=== PATIENT | female | born 1970 | race Caucasian/White ===

== ENCOUNTER 2021-09-17 21:24 | Emergency (ER) | payer OTHER ==
[~2021-09-17] VITALS: Ht 167.6 cm; Wt 60.8 kg
== END 2021-09-17 23:15 | disposition home or self-care (01) ==
LOC: ER 21:24
DX: S61.411A Laceration without foreign body of right hand, initial encounter (principal); S41.011A Laceration without foreign body of right shoulder, initial encounter; S91.312A Laceration without foreign body, left foot, initial encounter; W25.XXXA Contact with sharp glass, initial encounter; Y99.9 Unspecified external cause status; Y93.E1 Activity, personal bathing and showering; Y92.59 Other trade areas as the place of occurrence of the external cause